=== PATIENT | female | born 1990 | race African-American/Black ===

== ENCOUNTER 2023-12-14 18:25 | Emergency (ER) | payer MEDICAID, SELFPAY ==
[2023-12-14 18:38] VITALS: BP 120/78; PULSE 102; O2SAT 100
[2023-12-14 19:10] VITALS: BP 116/69; PULSE 105; RESP 18; TEMP 37; O2SAT 100; BMI 25.6
--- NOTE | 2023-12-14 19:42 | ED_ITS ---
HPI - General Adult General Chief complaint: Behavioral Concerns Stated complaint: SI Time Seen by Provider: 12/14/23 19:31 Source: patient Mode of arrival: EMS Limitations: no limitations History of Present Illness HPI narrative: Patient is a 33-year-old female who presents to the emergency department via EMS. [facility] she reports that she got into a verbal altercation with staff at the home, who accused her of suspected drug usage. She was advised that she needed to have drug testing before she could return back to the [facility] [place], [facility] by [facility]. At this time she denies any drug or alcohol usage. She reports that she has been 4 months sober. She will not disclose to me which substances she has used in the past stating ?that is private information?. She denies any physical complaints at this time. She denies any suicidal or homicidal ideations. She reports that she would like to return back to the [facility] [place], [facility] by [facility] and is agreeable to having drug testing obtained. Related Data Allergies Allergy/AdvReac Type Severity Reaction Status Date / Time lobster Allergy Rash Verified 12/14/23 19:25 Review of Systems 2 Review of Systems: Yes all other systems are reviewed and are negative PMFSH Past Medical History Attestation statement: The following information was validated with the patient. Source: old records reviewed Social History Social History Advance Directives: No Advance Directives Information Provided: No Physical Exam ED Vital Signs: Vital Signs - 24 hr 12/14/23 19:10 12/14/23 21:16 12/14/23 23:48 Temperature 98.6 F 98.0 F 98.0 F Pulse Rate 105 H 92 92 Respiratory Rate 18 18 18 Blood Pressure 116/69 103/49 L 103/49 L Pulse Oximetry 100 96 98 Oxygen Delivery Method Room Air Room Air BMI result Body Mass Index 25.6 Appearance: Alert.?Oriented to person, place and time. No acute distress.?Normal affect. Eyes: Pupils equal, round and reactive to light.? ENT: Pharynx normal.?? Neck: Normal inspection.? Neck supple.?? CVS: Heart sounds normal. Normal heart rate and rhythm.? Pulses normal.?? Respiratory: No respiratory distress.? Lung sounds clear to auscultation bilaterally?? Abdomen: Soft and non-tender. Normoactive bowel sounds. Skin: Skin warm and dry.? Normal skin color.? Extremities: No lower extremity edema.? Neuro: Moves all extremities spontaneously. Sensation intact bilaterally. CN II- XII intact. No focal neuro deficits. Ambulates with normal steady gait. Medical Decision Making Medical Decision Making [facility] Narrative: Patient is a 33-year-old female with reported past medical history of substance use disorder presenting to emergency department via EMS requesting drug testing to provide to [facility] as per [facility]. She denies any physical complaints at this time. Her physical examination is benign. She is amenable to having drug testing obtained so that she may share the results with her residential house that she wishes to return back to at this time. She is conscious alert and oriented x3, speaking clear full sentences. She is noted to be mildly tachycardic, with pulse 105, she does admit to feeling angry at the scenario and thinks that this is attributing to her mild tachycardia. She denies any recent ill symptoms or known sick contacts. Denies any history of arrhythmias. Differential Diagnosis Differential Diagnoses: The differential diagnosis associated with the presentation includes (Substance use disorder, arrhythmia, anxiety) Admission/Observation Consideration of admission/observation: Escalation of care including admission/observation considered (See narrative above and course narrative for further detail) Lab Data 12/14/23 20:22 12/14/23 20:22 Labs: Lab Results 12/14/23 12/14/23 Range/Units 20:22 21:27 WBC 7.5 (4.8-10.8) X10*3/uL RBC 4.64 (4.20-5.50) X10*6/uL Hgb 12.8 (12.0-16.0) g/dl Hct 35.5 L (37.0-47.0) % MCV 76.5 L (80.0-98.0) fL MCH 27.6 (27.0-33.0) pg MCHC 36.1 H (31.0-35.0) g/dl RDW 12.4 (11.0-16.0) % Plt Count 257 (160-400) X10*3/uL MPV 9.7 (9.4-12.3) fL Immature Gran % (Auto) 0.3 (0.0-0.4) % Neut % (Auto) 44.3 L (45-73) % Lymph % (Auto) 33.6 (20-40) % Faulkner % (Auto) 13.4 H (2-11) % Eos % (Auto) 7.7 H (0-4) % Baso % (Auto) 0.7 (0-2) % Lymph # (Auto) 2.5 (1.2-4.9) X10*3/uL Faulkner # (Auto) 1.0 (0.1-1.2) X10*3/uL Eos # (Auto) 0.6 H (0.0-0.4) X10*3/uL Baso # (Auto) 0.1 (0.0-0.2) X10*3/uL Abs Immat Gran (auto) 0.02 (0.00-0.03) X10*3/uL Absolute Neuts (auto) 3.3 (2.0-8.3) x10*3/uL Absolute Nucleated RBC 0.000 (0.0-0.012) X10*3/uL Nucleated RBC % (auto) 0.0 (0.0-0.2) /100WBC Sodium 140 (135-145) mmol/L Potassium 3.9 (3.3-5.1) mmol/L Chloride 107 (96-108) mmol/L Carbon Dioxide 24 (22-29) mmol/L Anion Gap 13 (12-20) BUN 11 (9-16) mg/dL Creatinine 0.84 (0.5-1.4) mg/dL Estim Creat Clear Calc 84.2 Estimated GFR > 60 Random Glucose 166 H (60-115) mg/dL Calcium 8.7 (8.4-10.2) mg/dL Urine Opiates Screen Not Detected (Not Detect) Urine Fentanyl Screen Not Detected (Not Detect) Ur Barbiturates Screen Not Detected (Not Detect) Ur Phencyclidine Scrn Not Detected (Not Detect) Ur Amphetamines Screen Not Detected (Not Detect) U Benzodiazepines Scrn Not Detected (Not Detect) Urine Cocaine Screen Not Detected (Not Detect) U Marijuana (THC) Screen Not Detected (Not Detect) Ethyl Alcohol < 10 mg/dL Independent Historian Clinical information obtained from an independent historian. History obtained from or confirmed by: EMS Social Determinants Patient?s care significantly limited by Social Determinants of Health including: Alcoholism and drug addiction in family Discharge Plan Discharge Clinical Impression: Medical clearance for psychiatric admission Patient Disposition: Home, Self-Care Instructions: Medical Clearance for Psychiatric Care (ED) Additional Instructions: You presented to emergency department today requesting testing for drug in alcohol usage, as you stated by the request of your residential house staff. Testing was obtained today, your alcohol level was nondetectable, and urine drug of abuse screen was negative. Interventions: ED Discharge Assessment Last Done: 12/14/23 23:48 Discharge Date/Time: 12/15/23 00:17 Print Language: Serbian
--- NOTE | 2023-12-14 19:58 | PC.NURSE ---
pt changed over with security at bedside. pt denies SI/HI. security checked bag, pt allowed to keep bag with phone, headphones and belongings. clothes put in POD locker 8
[2023-12-14 20:26] LABS: MANUAL DIFF FLAG NO
[2023-12-14 20:28] LABS: Basophils Absolute Auto 0.1 X10*3/uL (0.0-0.2); Basophils Percent Auto 0.7 % (0-2); Eosinophils Absolute Auto 0.6 X10*3/uL (0.0-0.4); Eosinophils Percent Auto 7.7 % (0-4); Hematocrit 35.5 % (37.0-47.0); Hemoglobin 12.8 g/dl (12.0-16.0); Imm Gran Abs Auto 0.02 X10*3/uL (0.00-0.03); Imm Gran Pct Auto 0.3 % (0.0-0.4); Lymphocytes Absolute Auto 2.5 X10*3/uL (1.2-4.9); Lymphocytes Percent Auto 33.6 % (20-40); Mean Corpuscular HGB Conc 36.1 g/dl (31.0-35.0); Mean Corpuscular Hemoglobin 27.6 pg (27.0-33.0); Mean Corpuscular Volume 76.5 fL (80.0-98.0); Mean Platelet Volume 9.7 fL (9.4-12.3); Monocytes Percent Auto 13.4 % (2-11); Neutrophils Absolute Auto 3.3 x10*3/uL (2.0-8.3); Neutrophils Percent Auto 44.3 % (45-73); Platelet Count 257 X10*3/uL (160-400); Red Blood Count 4.64 X10*6/uL (4.20-5.50); Red Cell Distribution Width 12.4 % (11.0-16.0); White Blood Count 7.5 X10*3/uL (4.8-10.8)
[2023-12-14 20:43] LABS: Anion Gap 13 (12-20); Blood Urea Nitrogen 11 mg/dL (9-16); Calcium 8.7 mg/dL (8.4-10.2); Carbon Dioxide 24 mmol/L (22-29); Chloride 107 mmol/L (96-108); Creatinine Clr Calc Pharmacy 84.2; Estimated Glomerular Filt Rate > 60; Ethanol < 10 mg/dL; Glucose Random 166 mg/dL (60-115); Potassium 3.9 mmol/L (3.3-5.1); Sodium 140 mmol/L (135-145)
[2023-12-14 21:16] VITALS: BP 103/49; PULSE 92; RESP 18; TEMP 36.7; O2SAT 96
[2023-12-14 21:41] LABS: Amphetamine Screen Urine Not Detected (Not Detect); Barbiturates, Urine Not Detected (Not Detect); Benzodiazepines Screen Urine Not Detected (Not Detect); Cannabinoid Screen Urine Not Detected (Not Detect); Cocaine Screen Urine Not Detected (Not Detect); Fentanyl, urine Not Detected (Not Detect); Opiate Screen Urine Not Detected (Not Detect); Phencyclidine Screen Urine Not Detected (Not Detect)
[2023-12-14 23:48] VITALS: BP 103/49; PULSE 92; RESP 18; TEMP 36.7; O2SAT 98
== END 2023-12-15 00:17 | disposition home or self-care (01) ==
LOC: HO.ED 12-15 00:15
PROVIDERS: Nurse Practitioner Family; Emergency Provider Internal Medicine
DX: R45.851 Suicidal ideations (principal); R00.0 Tachycardia, unspecified; Z79.899 Other long term (current) drug therapy
CPT/HCPCS: 36415; 80048; 80307; 85025; 99283